=== PATIENT | female | born 1995 | race Caucasian/White ===

== ENCOUNTER 2017-04-28 19:54 | Outpatient (CLI) | payer MEDICAID, OTHER ==
[2017-04-28 21:57] VITALS: BP 129/60; PULSE 101; RESP 16; TEMP 97.8
--- NOTE | 2017-04-29 16:43 | P.MSEPDOC ---
Presenting Problems - Arrival Data Date of Arrival on Unit: 04/28/17 Time of Arrival on Unit: 19:50 Mode of Transport: Wheelchair - Complaint OB-Reason for Admission/Chief Complaint: Possible Onset of Labor, Decreased Movement, Other Comment: general feeling of "not feeling well," occasional cramps Medical History - Information : 1 Para: 0 Term: 0 : 0 Abortions: Spontaneous or Elective: 0 Number of Living Children: 0 - Gestational Age Gestational Age by RUBA (wks/days): 37 Weeks and 4 Days Review of Systems - Review of Systems Constitutional: No problems Breast: No problems ENT: No problems Cardiovascular: No problems Respiratory: No problems Gastrointestinal: No problems Genitourinary: No problems Musculoskeletal: No problems Neurological: No problems Skin: No problems Vital Signs - Temperature Temperature: 97.8 F Temperature Source: Temporal Artery Scan - Pulse Right Pulse Rate: 101 Pulse Assessment Method: Pulse Oximetry - Respirations Respiratory Rate: 16 O2 Sat by Pulse Oximetry: 98 - Blood Pressure Right Arm Blood Pressure: 129/60 Blood Pressure Mean: 83 Blood Pressure Source: Automatic Cuff Medical Screen Scoring (Pre) - Cervical Exam Dilation: 1-3 cm = 1 Membranes: Intact - Uterine Contractions Frequency: > 5 minutes apart = 1 Duration: > 40 seconds = 2 Intensity: N/A - Maternal Vital Signs Maternal Temperature: N/A Maternal Blood Pressure: N/A Signs of Preeclampsia: N/A Maternal Respirations: N/A - Maternal Trauma Maternal Trauma: N/A - Assessment Baseline FHR: 150 Heart Rate - NICHD Category: Category I (Normal) = 0 NST: Reactive - Total Score Total Score (Pre): 4 - Level of Risk Level of Risk: Low (0-5) Physician Notification (Pre) - Physician Notified Physician Notified Date: 04/28/17 Physician Notified Time: 21:21 Physician/Practitioner Notifed:: Dr Gates - Notification Comment Comment: reported on pts c/o not feeling well, occasional cramping. reported on fhts, cntrx pattern irreg, no change in vag exam. orders to d/c home with increase in oral fluids, position changes at home, keep scheduled appt in office on . 2122- Dr Heaton at desk, orders for pt to be seen in office tomorrow for NST and appt, may be d/c'd home. Disposition - Disposition OB Disposition: Discharge to home Discharge Date: 04/28/17 Discharge Time: 21:40 I agree with the RN Medical Screening Exam: Yes Risk & Benefit of care provided described in d/c instruction: Yes Diagnosis: 37 WEEKS GESTATION OF
== END 2017-04-28 21:40 | disposition home or self-care (01) ==
LOC: FBPOP 19:54
PROVIDERS: ATTEND Obstetrics & Gynecology
DX: O36.8130 Decreased fetal movements, third trimester, not applicable or unspecified (principal); Z3A.37 37 weeks gestation of pregnancy
CPT/HCPCS: 59025; 99213

== ENCOUNTER 2017-05-04 09:41 | Outpatient (CLI) | payer MEDICAID, OTHER ==
[2017-05-04 10:15] VITALS: BP 124/72; PULSE 87; RESP 18; TEMP 97.2
--- NOTE | 2017-05-05 16:06 | P.MSEPDOC ---
Presenting Problems - Arrival Data Date of Arrival on Unit: 05/04/17 Time of Arrival on Unit: 09:41 Mode of Transport: Ambulatory - Complaint OB-Reason for Admission/Chief Complaint: Possible Onset of Labor Medical History - Information : 1 Para: 0 Term: 0 : 0 Abortions: Spontaneous or Elective: 0 Number of Living Children: 0 - Gestational Age Gestational Age by RUBA (wks/days): 38 Weeks and 3 Days Review of Systems - Review of Systems Constitutional: No problems Breast: No problems ENT: No problems Cardiovascular: No problems Respiratory: No problems Gastrointestinal: No problems Genitourinary: No problems Musculoskeletal: No problems Neurological: No problems Skin: No problems Comment: Thyroid cyst removed , Activity induced asthma Vital Signs - Temperature Temperature: 97.2 F Temperature Source: Temporal Artery Scan - Pulse Brachial Pulse Rate: 87 Pulse Assessment Method: Automatic Cuff - Respirations Respiratory Rate: 18 Oxygen Delivery Method: Room Air O2 Sat by Pulse Oximetry: 97 - Blood Pressure Right Arm Blood Pressure: 124/72 Blood Pressure Mean: 89 Blood Pressure Source: Automatic Cuff Medical Screen Scoring (Pre) - Cervical Exam Dilation: 1-3 cm = 1 Membranes: Intact - Uterine Contractions Frequency: N/A Duration: N/A Intensity: N/A - Maternal Vital Signs Maternal Temperature: N/A Maternal Blood Pressure: N/A Signs of Preeclampsia: N/A Maternal Respirations: N/A - Pain Assessment Pain Location and Character: Back, Abdomen Pain Scale Used: Numeric (1 - 10) Pain Intensity: 5 Pain Management Goal: 2 Pain Description: *Acute, Cramping Pain Frequency: Intermittent Pain Behavior: Vocalization Non-Pharmacological Interventions: Darkened Room, Distraction, Reduce Environmental Stimuli, Relaxation Technique - Maternal Trauma Maternal Trauma: N/A - Assessment Baseline FHR: 148 Heart Rate - NICHD Category: Category I (Normal) = 0 NST: Reactive Position: N/A Station: N/A - Total Score Total Score (Pre): 1 - Level of Risk Level of Risk: N/A Physician Notification (Pre) - Physician Notified Physician Notified Date: 05/04/17 Physician Notified Time: 10:25 Physician/Practitioner Notifed:: Dr allen Spoke With: dr allen - Notification Comment Comment: discharge home and follow up on thu in office Disposition - Disposition OB Disposition: Triage, Discharge to home, Written follow up instructions reviewed Discharge Date: 05/04/17 Discharge Time: 10:35 I agree with the RN Medical Screening Exam: Yes Risk & Benefit of care provided described in d/c instruction: Yes Diagnosis: FALSE LABOR AT OR AFTER 37 COMPLETED WEEKS OF GESTATION
== END 2017-05-04 10:35 | disposition home or self-care (01) ==
LOC: FBPOP 09:41
PROVIDERS: ATTEND Obstetrics & Gynecology Obstetrics
DX: O47.1 False labor at or after 37 completed weeks of gestation (principal); Z3A.38 38 weeks gestation of pregnancy
CPT/HCPCS: 59025; 99213

== ENCOUNTER 2017-05-11 00:35 | Inpatient (IN) | payer MEDICAID, OTHER ==
[2017-05-11] MEDS ORDERED: OXYTOCIN 10 UNIT/ML 1 ML VIAL IM PRN (01:46)
[2017-05-11] MEDS ORDERED: CARBOPROST TROMETHAMINE 250 MCG/ML 1 ML AMP IM PRN (01:46)
[2017-05-11] MEDS ORDERED: TERBUTALINE 1 MG/ML VIAL SQ PRN (01:46)
[2017-05-11] MEDS ORDERED: LIDOCAINE 1% (PF) 10 MG/ML (30 ML SDV) SQ PRN (01:46)
[2017-05-11] MEDS ORDERED: METHYLERGONOVINE 0.2 MG/ML 1 ML AMP IM PRN (01:46)
[2017-05-11 02:00] VITALS: BMI 36.6
[2017-05-11] MEDS: LACTATED RINGERS 1,000 ML IV SCH ×3 (02:25→20:09)
[2017-05-11 02:32] LABS: Basophils # (A) 0.1 k/uL (0-0.2); Basophils % (A) 0 %; Eosinophils # (A) 0.2 k/uL (0-0.7); Eosinophils % (A) 1 %; HCT 38.6 % (34.0-46.0); Lymphocytes # (A) 2.3 k/uL (1.0-4.8); Lymphocytes % (A) 14 %; MCH 29.9 pg (25.0-35.0); MCHC 33.6 g/dL (31.0-37.0); MCV 89.2 fL (80.0-100.0); Mean Platelet Volume 7.9; Monocytes # (A) 0.8 k/uL (0-1.0); Monocytes % (A) 5 %; Neutrophils # (A) 13.1 k/uL (1.3-7.7); Neutrophils % (A) 79 %; Platelet Count 243 k/uL (150-450); RBC 4.33 m/uL (3.80-5.40); RDW 12.5 % (11.5-15.5); WBC 16.6 k/uL (3.8-10.6)
[2017-05-11] MEDS ORDERED: OXYTOCIN 20 UNITS/1000 ML NS 1,000 ML IV SCH ×2 (05:30→14:15)
[2017-05-11] MEDS ORDERED: SODIUM CHLORIDE 0.9% 100 ML BAG ONE (07:49)
[2017-05-11] MEDS ORDERED: fentaNYL (PF) 50 MCG/ML 5 ML AMP ONE (07:49)
[2017-05-11] MEDS ORDERED: BUPIVACAINE (PF) 0.25% 30 ML VIAL ONE (07:49)
--- NOTE | 2017-05-11 10:46 | P.HPOB ---
History of Present Illness H&P Date: 05/11/17 Chief Complaint: IUP @ 39 3/7 weeks, ctx This is a 22yo at 39 3/7 weeks EDC 05/15. Patient presents with c/o ctx that started about 930 last pm. she denies LOF, VB, and notes good FM. on blood work blood type of O pos, rubella immune, RPR NR, HBSaG neg, GBS neg. she does have a PMH of exercise induced asthma Review of Systems Constitutional: Denies chills, Denies fever Cardiovascular: Reports edema Respiratory: Denies cough, Denies dyspnea Gastrointestinal: Denies constipation, Denies diarrhea, Denies nausea, Denies vomiting Genitourinary: Reports Past Medical History Past Medical History: Asthma Additional Past Medical History / Comment(s): exercise induced asthma History of Any Multi-Drug Resistant Organisms: None Reported Additional Past Surgical History / Comment(s): Removal of Throat Cyst Past Anesthesia/Blood Transfusion Reactions: No Reported Reaction Past Psychological History: No Psychological Hx Reported Smoking Status: Never smoker Past Alcohol Use History: None Reported Past Drug Use History: None Reported - Past Family History Father Family Medical History: Asthma Medications and Allergies Home Medications Medication Instructions Recorded Confirmed Type Albuterol Inhaler [Ventolin Hfa 1 puff PO DIRECTED 04/28/17 05/04/17 History Inhaler] Pnv No.95/Ferrous Fum/Folic AC 05/11/17 History [ Multivitamin Tablet] Allergies Allergy/AdvReac Type Severity Reaction Status Date / Time No Known Allergies Allergy Verified 05/11/17 00:36 Exam Osteopathic Statement: *. No significant issues noted on an osteopathic structural exam other than those noted in the History and Physical/Consult. - Vital Signs Vital signs: Vital Signs Temp Pulse Pulse Resp BP BP Pulse Ox 05/11/17 01:54 97.1 F L 96 18 128/81 05/11/17 01:41 97.1 F L 96 18 128/81 99 05/11/17 00:35 87 18 Intake and Output 05/10/17 05/11/17 05/11/17 22:59 06:59 14:59 Intake Total 500 Balance 500 Intake: IV 500 Lactated Ringers 1,000 ml 500 @ 125 mls/hr IV .Q8H KING Rx#:[id number] Other: Voiding Method Toilet # Voids 2 Weight 90.718 kg - OBG Physical Exam Abdomen: gravid Cervix: 4/100/-2 BBOW, amniotomy preformed with clear fluid noted Results Result Diagrams: 05/11/17 02:25 Abnormal Lab Results - Last 24 Hours (Table) 05/11/17 Range/Units 02:25 WBC 16.6 H (3.8-10.6) k/uL Neutrophils # 13.1 H (1.3-7.7) k/uL Assessment and Plan (1) Term Current Visit: Yes Status: Acute Code(s): Z34.80 - ENCOUNTER FOR SUPRVSN OF NORMAL , UNSP TRIMESTER SNOMED Code(s): 62182468 Plan: admit to labor and delviery for anticipated later today
[2017-05-11] MEDS ORDERED: WITCH HAZEL 1 EACH MED..PAD TOPICAL PRN (14:11)
[2017-05-11] MEDS ORDERED: diphenhydrAMINE 25 MG CAP PO PRN (14:11)
[2017-05-11] MEDS ORDERED: diphenhydrAMINE 50 MG CAP PO PRN (14:11)
[2017-05-11] MEDS ORDERED: ZOLPIDEM 5 MG TAB PO PRN (14:11)
[2017-05-11] MEDS ORDERED: SIMETHICONE 80 MG CHEWABLE PO PRN (14:11)
[2017-05-11] MEDS ORDERED: LANOLIN CREAM 5 GM TUBE TOPICAL PRN (14:11)
[2017-05-11] MEDS ORDERED: HYDROCORTISONE 2.5% RECTAL CREAM 30 GM TUBE RECTAL PRN (14:11)
[2017-05-11] MEDS ORDERED: BENZOCAINE/MENTHOL SPRAY 1 GM/SPRAY AEROSOL TOPICAL PRN (14:11)
[2017-05-11] MEDS ORDERED: diphenhydrAMINE 50 MG/ML 1 ML VIAL IVP PRN ×2 (14:11)
--- NOTE | 2017-05-11 14:14 | P.PROBDLV ---
Vaginal Delivery Note - . Vaginal Delivery Note: This is a very pleasant 22-year-old 1 para 0 that presented with complaints of contractions. Patient was initially 3 cm dilated was admitted for expectant management and she was adrian every 5 minutes. Patient progressed to 4-5 cm amniotomy was performed with clear fluid. Patient noted contractions to be spacing out therefore Pitocin augmentation of labor was begun. Patient eventually got an epidural for analgesia became complete and began pushing. Patient was noted to be complete and began pushing. Patient had a normal spontaneous vaginal delivery of an occiput posterior male infant at 1349 weight of 7 lbs. 4 oz. Apgars of 9 and 9. A second-degree vaginal laceration was noted. The head was delivered in the occiput posterior presentation slight downward traction delivered the anterior shoulder slight upward traction delivered the posterior shoulder, the infant's body was then delivered without difficulty and placed on the maternal abdomen. After Dorton delayed cord clamp was completed the cord was doubly clamped and cut. The placenta was then removed spontaneously intact with a three-vessel cord. Afterwards inspection of the patient's vaginal vault a second-degree midline laceration was noted with labial lacerations bilaterally. These were repaired in the usual fashion with 3 -0 Rapide. Afterwards the vaginal vault was inspected everything was intact and no further lacerations were noted a rectal exam was completed in normal in nature. X Estimated blood loss approximately 300 mL. Patient and are doing well and resting comfortably after delivery.
[2017-05-11] MEDS: IBUPROFEN 600 MG TAB PO PRN ×2 (14:57→22:58)
[2017-05-11] MEDS: SENNOSIDES-DOCUSATE SODIUM 1 EACH TAB PO SCH (19:34)
[2017-05-11] MEDS: ACETAMINOPHEN TAB 325 MG TAB PO PRN (19:34)
[2017-05-12 00:30] VITALS: RESP 16
[2017-05-12] MEDS: ACETAMINOPHEN TAB 325 MG TAB PO PRN (02:12)
[2017-05-12] MEDS: IBUPROFEN 600 MG TAB PO PRN ×2 (08:23→14:53)
[2017-05-12] MEDS: SENNOSIDES-DOCUSATE SODIUM 1 EACH TAB PO SCH (08:24)
--- NOTE | 2017-05-12 08:39 | P.DS ---
Providers Date of admission: 05/11/17 01:48 Expected date of discharge: 05/12/17 Attending physician: Gabrielle Heaton Primary care physician: Stated None - Discharge Diagnosis(es) (1) Term Current Visit: Yes Status: Acute (2) Status post vaginal delivery Current Visit: Yes Status: Acute Hospital Course: This is a 22-year-old 1 para 0 that presented yesterday in active labor. Patient progressed slowly through labor amniotomy was performed clear fluid was obtained, she eventually needed Pitocin augmentation to become complete. She began pushing and had a normal spontaneous vaginal delivery of a viable male in an occiput posterior presentation. Delivery time of 1349 , weight of 7 lbs. 4 oz. with Apgars of 9 and 9 at one and 5 minutes respectively Patient's course is been uneventful. She is breast-feeding with some difficulty but states she is doing well. She is ambulating and voiding without difficulty, lochia is moderate, she states her pain is controlled. She wishes to be discharged home Patient Condition at Discharge: Good Plan - Discharge Summary New Discharge Prescriptions: No Action Albuterol Inhaler [Ventolin Hfa Inhaler] 1 puff PO DIRECTED Pnv No.95/Ferrous Fum/Folic AC [ Multivitamin Tablet] Discharge Medication List Albuterol Inhaler [Ventolin Hfa Inhaler] 1 puff PO DIRECTED 04/28/17 [History ] Pnv No.95/Ferrous Fum/Folic AC [ Multivitamin Tablet] 05/11/17 [History ] Follow up Appointment(s)/Referral(s): Gabrielle Heaton DO [Doctor of Osteopathic Medicine] - 1 Week Patient Instructions/Handouts: Vaginal Delivery (DC)
[2017-05-12 08:40] VITALS: BP 122/69; PULSE 97; TEMP 97.6
--- NOTE | 2017-05-12 18:47 | P.MSEPDOC ---
Presenting Problems - Arrival Data Date of Arrival on Unit: 05/11/17 Time of Arrival on Unit: 01:49 Mode of Transport: Wheelchair - Complaint OB-Reason for Admission/Chief Complaint: Possible Onset of Labor Comment: C/O contrations starting at 2130. Medical History - Information : 1 Para: 0 Term: 0 : 0 Abortions: Spontaneous or Elective: 0 Number of Living Children: 0 - Gestational Age Gestational Age by RUBA (wks/days): 39 Weeks and 4 Days Review of Systems - Review of Systems Constitutional: No problems Breast: No problems ENT: No problems Cardiovascular: No problems Respiratory: No problems Gastrointestinal: No problems Genitourinary: No problems Musculoskeletal: No problems Neurological: No problems Skin: No problems Vital Signs - Temperature Temperature: 97.6 F Temperature Source: Oral - Pulse Pulse Oximetery Pulse Rate: 97 Pulse Assessment Method: Pulse Oximetry Right Pulse Rate: 101 Pulse Assessment Method: Pulse Oximetry - Respirations Respiratory Rate: 16 Oxygen Delivery Method: Room Air - Blood Pressure Sitting Blood Pressure: 122/69 Blood Pressure Mean: 86 Blood Pressure Source: Automatic Cuff Right Arm Blood Pressure: 116/60 Blood Pressure Mean: 78 Blood Pressure Source: Automatic Cuff Medical Screen Scoring (Pre) - Cervical Exam Dilation: 1-3 cm = 1 Effacement: Exam Deferred Membranes: Intact - Uterine Contractions Frequency: > 5 minutes apart = 1 Duration: N/A Intensity: N/A - Maternal Vital Signs Maternal Temperature: N/A Maternal Blood Pressure: N/A Signs of Preeclampsia: N/A Maternal Respirations: N/A - Pain Assessment Pain Location and Character: Abdomen Pain Scale Used: Numeric (1 - 10) Pain Intensity: 6 Pain Management Goal: 0 Pain Description: *Acute, Cramping, Squeezing Pain Frequency: Intermittent Pain Duration Units: Minutes Pain Behavior: Vocalization Pain Aggravating Factors: Contractions Non-Pharmacological Interventions: Darkened Room, Distraction, Environmental Control, Position/Reposition, Relaxation Technique - Maternal Trauma Maternal Trauma: N/A - Assessment Baseline FHR: 135 Heart Rate - NICHD Category: Category I (Normal) = 0 NST: Reactive Position: N/A Station: N/A - Total Score Total Score (Pre): 2 - Level of Risk Level of Risk: Low (0-5) Physician Notification (Pre) - Physician Notified Physician Notified Date: 05/11/17 Physician Notified Time: 01:41 Physician/Practitioner Notifed:: Dr. Heaton Spoke With: Dr. Heaton New Order Received: Yes (Admit) - Notification Comment Comment: Orders to admit pt at this time. If not making change/not in consistant contraction pattern by [phone] start pitoicin at that time. Medical Screen Scoring (Post) - Cervical Exam Dilation: 1-3 cm = 1 Effacement: Exam Deferred Membranes: Intact - Uterine Contractions Frequency: > 5 minutes apart = 1 Duration: N/A Intensity: N/A - Maternal Vital Signs Maternal Temperature: N/A Maternal Blood Pressure: N/A Signs of Preeclampsia: N/A Maternal Respirations: N/A - Pain Assessment Pain Location and Character: Abdomen Pain Scale Used: Numeric (1 - 10) Pain Intensity: 6 Pain Management Goal: 0 Pain Description: *Acute, Cramping, Squeezing Pain Frequency: Intermittent Pain Duration Units: Minutes Pain Behavior: Vocalization Pain Aggravating Factors: Contractions Non-Pharmacological Interventions: Darkened Room, Distraction, Environmental Control, Position/Reposition, Relaxation Technique - Maternal Trauma Maternal Trauma: N/A - Assessment Heart Rate: 140 Heart Rate - NICHD Category: Category I (Normal) = 0 NST: Reactive Position: N/A Station: N/A - Total Score Total Score (Post): 2 - Post Treatment Level of Risk Post Treatment Level of Risk: Low (0-5) Physician Notification (Post) - Physician Notified Physician Notified Date: 05/11/17 Physician Notified Time: 01:40 Physician/Practitioner Notified:: Dr. Heaton Spoke With: Dr. Heaton New Order Received: Yes (Admit) Disposition - Disposition OB Disposition: Admit Transferred to:: [address] Discharge Date: 05/12/17 Discharge Time: 14:57 I agree with the RN Medical Screening Exam: Yes Risk & Benefit of care provided described in d/c instruction: Yes Diagnosis: FULL-TERM BBEE ROM, ONSET LABOR WITHIN 24 HOURS OF RUPTURE
== END 2017-05-12 14:58 | disposition home or self-care (01) | DRG 775 ==
LOC: FBPOP 00:35 → 4FBP 01:48
PROVIDERS: ADMIT Obstetrics & Gynecology Obstetrics; ATTEND Obstetrics & Gynecology Obstetrics
PROC: 10E0XZZ Delivery of Products of Conception, External Approach (ICD-10-PCS; principal; 2017-05-11)
PROC: 0KQM0ZZ Repair Perineum Muscle, Open Approach (ICD-10-PCS; 2017-05-11)
PROC: 00HU33Z Insertion of Infusion Device into Spinal Canal, Percutaneous Approach (ICD-10-PCS; 2017-05-11)
PROC: 3E0R3NZ Introduction of Analgesics, Hypnotics, Sedatives into Spinal Canal, Percutaneous Approach (ICD-10-PCS; 2017-05-11)
PROC: 10907ZC Drainage of Amniotic Fluid, Therapeutic from Products of Conception, Via Natural or Artificial Opening (ICD-10-PCS; 2017-05-11)
DX: O99.52 Diseases of the respiratory system complicating childbirth (principal); J45.990 Exercise induced bronchospasm; O70.1 Second degree perineal laceration during delivery; Z37.0 Single live birth; Z82.5 Family history of asthma and other chronic lower respiratory diseases; Z3A.39 39 weeks gestation of pregnancy; Z79.899 Other long term (current) drug therapy
CPT/HCPCS: 59025; 85025; 88307; 99213

== ENCOUNTER 2018-09-29 05:55 | Inpatient (IN) | payer MEDICAID ==
[2018-09-29] MEDS ORDERED: METHYLERGONOVINE 0.2 MG/ML 1 ML AMP IM PRN (06:06)
[2018-09-29] MEDS ORDERED: OXYTOCIN 10 UNIT/ML 1 ML VIAL IM PRN (06:06)
[2018-09-29] MEDS ORDERED: LIDOCAINE 0.5% (PF) 5 MG/ML (50 ML SDV) SQ PRN (06:06)
[2018-09-29] MEDS ORDERED: TERBUTALINE 1 MG/ML VIAL SQ PRN (06:06)
[2018-09-29] MEDS ORDERED: CARBOPROST TROMETHAMINE 250 MCG/ML 1 ML AMP IM PRN (06:06)
[2018-09-29] MEDS ORDERED: OXYTOCIN 30 UNITS/500 ML NS 30 UNIT in SALINE 1 500ML.BAG IV SCH (06:15)
[2018-09-29 06:27] VITALS: BMI 34.0
[2018-09-29] MEDS: LACTATED RINGERS 1,000 ML IV SCH ×3 (06:28→13:34)
[2018-09-29 06:34] LABS: Basophils % (A) 0 %; Eosinophils # (A) 0.1 k/uL (0-0.7); Eosinophils % (A) 1 %; HCT 35.1 % (34.0-46.0); Lymphocytes # (A) 1.7 k/uL (1.0-4.8); Lymphocytes % (A) 15 %; MCH 31.3 pg (25.0-35.0); MCHC 34.1 g/dL (31.0-37.0); MCV 91.7 fL (80.0-100.0); Mean Platelet Volume 7.6; Monocytes # (A) 0.6 k/uL (0-1.0); Monocytes % (A) 5 %; Neutrophils # (A) 8.7 k/uL (1.3-7.7); Neutrophils % (A) 77 %; Platelet Count 241 k/uL (150-450); RBC 3.83 m/uL (3.80-5.40); RDW 12.6 % (11.5-15.5); WBC 11.3 k/uL (3.8-10.6)
[2018-09-29] MEDS ORDERED: ROPIVACAINE 100 MG, fentaNYL (PF) 200 MCG in SODIUM CHLORIDE 0.9% 76 ML EPIDURAL ONE (12:59)
--- NOTE | 2018-09-29 15:07 | P.HPOB ---
History of Present Illness H&P Date: 09/29/18 Chief Complaint: IUP at 39-0/7 weeks, elective induction of labor This is a pleasant 23-year-old 2 para 1001 at 39-0/7 weeks that presented to labor and delivery for elective induction of labor. Patient has been receiving routine uncomplicated care with myself, patient notes good movement denies vaginal bleeding or loss of fluid. On bloodwork should a blood type of O+, rubella immune, B surface antigen negative, HIV negative, RPR nonreactive, GBS negative. Patient is a have a history of asthma but been well controlled. Review of Systems Constitutional: Denies chills, Denies fatigue, Denies fever Ears, nose, mouth and throat: Denies headache Cardiovascular: Reports edema Respiratory: Denies cough, Denies dyspnea Gastrointestinal: Denies nausea, Denies vomiting Genitourinary: Reports Past Medical History Past Medical History: Asthma Additional Past Medical History / Comment(s): exercise induced asthma History of Any Multi-Drug Resistant Organisms: None Reported Additional Past Surgical History / Comment(s): Removal of Throat Cyst, Sawyer tooth extraction Past Anesthesia/Blood Transfusion Reactions: Postoperative Nausea & Vomiting (PONV) Past Psychological History: No Psychological Hx Reported Smoking Status: Never smoker Past Alcohol Use History: None Reported Past Drug Use History: None Reported - Past Family History Father Family Medical History: Asthma Mother Family Medical History: Diabetes Mellitus, Hypertension Additional Family Medical History / Comment(s): Type 2 DM, Stent placed July 2017 Medications and Allergies Home Medications Medication Instructions Recorded Confirmed Type Albuterol Inhaler [Ventolin Hfa 1 puff PO DIRECTED 04/28/17 09/29/18 History Inhaler] Pnv No.95/Ferrous Fum/Folic AC 1 tab PO DAILY 05/11/17 09/29/18 History [ Multivitamin Tablet] Allergies Allergy/AdvReac Type Severity Reaction Status Date / Time No Known Allergies Allergy Verified 09/29/18 06:04 Exam Osteopathic Statement: *. No significant issues noted on an osteopathic structural exam other than those noted in the History and Physical/Consult. Vital Signs Temp Pulse Resp BP 09/29/18 06:21 97.2 F L 101 H 16 117/74 Intake and Output 09/29/18 09/29/18 09/29/18 06:59 14:59 22:59 Other: Weight 84.368 kg Targeted physical exam is performed on this date in general this a well- nourished well-developed female in no acute distress, patient notes no nlabored breathing heart has regular rate and rhythm her abdomen is gravid and appropriate for gestational age on cervical exam she is 2/50/-3 amniotomy is performed and clear fluid was obtained heart tones are every 1. Results Result Diagrams: 09/29/18 06:25 Abnormal Lab Results - Last 24 Hours (Table) 09/29/18 Range/Units 06:25 WBC 11.3 H (3.8-10.6) k/uL Neutrophils # 8.7 H (1.3-7.7) k/uL Assessment and Plan (1) Term Current Visit: No Status: Acute Code(s): Z34.80 - ENCOUNTER FOR SUPRVSN OF NORMAL , UNSP TRIMESTER SNOMED Code(s): 22375601 Plan: Patient is admitted to labor and delivery for Pitocin induction of labor, patient is offered Stadol/epidural as needed for pain relief anticipate spontaneous vaginal delivery later today.
[2018-09-29] MEDS ORDERED: LANOLIN CREAM 5 GM TUBE TOPICAL PRN (15:08)
[2018-09-29] MEDS ORDERED: diphenhydrAMINE 50 MG CAP PO PRN (15:08)
[2018-09-29] MEDS ORDERED: diphenhydrAMINE 25 MG CAP PO PRN (15:08)
[2018-09-29] MEDS ORDERED: ACETAMINOPHEN TAB 325 MG TAB PO PRN (15:08)
[2018-09-29] MEDS ORDERED: diphenhydrAMINE 50 MG/ML 1 ML VIAL IVP PRN ×2 (15:08)
[2018-09-29] MEDS ORDERED: BENZOCAINE/MENTHOL SPRAY 1 GM/SPRAY AEROSOL TOPICAL PRN (15:08)
[2018-09-29] MEDS ORDERED: WITCH HAZEL 1 EACH MED..PAD TOPICAL PRN (15:08)
[2018-09-29] MEDS ORDERED: SIMETHICONE 80 MG CHEWABLE PO PRN (15:08)
[2018-09-29] MEDS ORDERED: HYDROCORTISONE 2.5% RECTAL CREAM 30 GM TUBE RECTAL PRN (15:08)
[2018-09-29] MEDS ORDERED: HYDROcodone/APAP 5-325MG 1 EACH TAB PO PRN (15:08)
[2018-09-29] MEDS ORDERED: ZOLPIDEM 5 MG TAB PO PRN (15:08)
--- NOTE | 2018-09-29 15:08 | P.PROBDLV ---
Vaginal Delivery Note - . Vaginal Delivery Note: This is a 23-year-old 2 para 1001 at 39-0/7 weeks that presents to labor and delivery for elective induction of labor. Patient was admitted Pitocin induction was begun. Amniotomy was performed and clear fluid was obtained. Patient progressed through labor becoming uncomfortable and requesting epidural placement. Patient progressed to complete began pushing and had a normal spontaneous vaginal delivery of a viable female infant at 1452, a loose body cord was delivered through, weight of 5 lbs. 13 oz., Apgars of 9 and 9 at one and 5 minutes respectively. After a two-minute delayed the umbilical cord was then doubly clamped and cut and the placenta was delivered spontaneously intact with a three-vessel cord being noted. On inspection the patient's vaginal vault a second-degree midline laceration was noted this was repaired in the usual fashion with 3-0 Rapide. Hemostasis was appreciated afterwards. Uterus is firm and below the umbilicus at this time. S May blood loss 300 mL. A rectal exam was performed and normal in nature. All counts are correct 2 patient and infant tolerated delivery well and are resting comfortably.
[2018-09-29] MEDS ORDERED: ALBUTEROL NEBULIZED 2.5 MG/3 ML INHALATION PRN (15:15)
[2018-09-29] MEDS ORDERED: OXYTOCIN 20 UNITS/1000 ML NS 1,000 ML IV SCH (15:15)
[2018-09-29] MEDS: SENNOSIDES-DOCUSATE SODIUM 1 EACH TAB PO SCH (23:18)
[2018-09-30] MEDS: IBUPROFEN 600 MG TAB PO PRN ×3 (01:04→14:16)
[2018-09-30 07:19] LABS: Basophils % (A) 0 %; Eosinophils # (A) 0.1 k/uL (0-0.7); Eosinophils % (A) 1 %; HCT 37.3 % (34.0-46.0); HGB 12.4 gm/dL (11.4-16.0); Lymphocytes # (A) 1.9 k/uL (1.0-4.8); Lymphocytes % (A) 12 %; MCH 31.2 pg (25.0-35.0); MCHC 33.3 g/dL (31.0-37.0); MCV 93.7 fL (80.0-100.0); Mean Platelet Volume 7.2; Monocytes # (A) 0.8 k/uL (0-1.0); Monocytes % (A) 5 %; Neutrophils # (A) 12.2 k/uL (1.3-7.7); Neutrophils % (A) 81 %; Platelet Count 210 k/uL (150-450); RBC 3.98 m/uL (3.80-5.40); RDW 12.5 % (11.5-15.5); WBC 15.1 k/uL (3.8-10.6)
--- NOTE | 2018-09-30 08:11 | P.DS ---
Providers Date of admission: 09/29/18 05:55 Expected date of discharge: 09/30/18 Attending physician: Gabrielle Heaton Primary care physician: Stated None - Discharge Diagnosis(es) (1) Status post vaginal delivery Current Visit: No Status: Acute (2) Term Current Visit: No Status: Acute (3) Perineal laceration with delivery, second degree Current Visit: Yes Status: Acute Hospital Course: This is a 23-year-old 2 now para 2 woman who is admitted at 39 weeks gestation for elective induction of labor. She was admitted and underwent a Pitocin induction of labor with artificial rupture of membranes. She received an epidural anesthetic. She went on to deliver a liveborn female infant weighing 5 lbs. 13 oz. with Apgars of 9 at 1 minute and 9 at 5 minutes. She had a second-degree perineal laceration. Please see the delivery summary for details. The patient's course was entirely unremarkable. By day #1 she was tolerating a general diet, ambulating and voiding without difficulty, she had moderate lochia, and she was breast feeding successfully. She was therefore discharged home with routine instructions for care and follow-up. Procedures: Normal spontaneous vaginal delivery Repair of second-degree perineal laceration Patient Condition at Discharge: Good Plan - Discharge Summary New Discharge Prescriptions: No Action Albuterol Inhaler [Ventolin Hfa Inhaler] 1 puff PO DIRECTED Pnv No.95/Ferrous Fum/Folic AC [ Multivitamin Tablet] 1 tab PO DAILY Discharge Medication List Albuterol Inhaler [Ventolin Hfa Inhaler] 1 puff PO DIRECTED 04/28/17 [History] Pnv No.95/Ferrous Fum/Folic AC [ Multivitamin Tablet] 1 tab PO DAILY 05/11/17 [History] Follow up Appointment(s)/Referral(s): Gabrielle Heaton DO [Doctor of Osteopathic Medicine] - 6 Weeks Activity/Diet/Wound Care/Special Instructions: Follow-up in the office in 6 weeks . Call with any concerning signs or symptoms including heavy vaginal bleeding, severe abdominal pain, fever greater than 101, swelling or redness of the lower extremities, foul vaginal discharge, or signs of depression. Nothing in the vagina for 6 weeks after delivery, specifically no intercourse. May use [id number] ibuprofen and/or Tylenol as needed for pain. May use [id number] stool softener such as Senokot or Colace as needed. Discharge Disposition: HOME SELF-CARE
[2018-09-30] MEDS: SENNOSIDES-DOCUSATE SODIUM 1 EACH TAB PO SCH (08:38)
[2018-09-30] MEDS ORDERED: PRENATAL VIT-IRON-FOLIC ACID 1 EACH CAP PO SCH (09:00)
[2018-09-30 10:44] VITALS: BP 120/74; PULSE 86; RESP 16; TEMP 98.2
== END 2018-09-30 16:20 | disposition home or self-care (01) | DRG 807 ==
LOC: 4FBP 05:55
PROVIDERS: ADMIT Obstetrics & Gynecology Obstetrics; ATTEND Obstetrics & Gynecology Obstetrics
PROC: 10907ZC Drainage of Amniotic Fluid, Therapeutic from Products of Conception, Via Natural or Artificial Opening (ICD-10-PCS; principal; 2018-09-29)
PROC: 00HU33Z Insertion of Infusion Device into Spinal Canal, Percutaneous Approach (ICD-10-PCS; principal; 2018-09-29)
PROC: 3E0R3BZ Introduction of Anesthetic Agent into Spinal Canal, Percutaneous Approach (ICD-10-PCS; principal; 2018-09-29)
PROC: 10E0XZZ Delivery of Products of Conception, External Approach (ICD-10-PCS; principal; 2018-09-29)
PROC: 0KQM0ZZ Repair Perineum Muscle, Open Approach (ICD-10-PCS; principal; 2018-09-29)
DX: O99.52 Diseases of the respiratory system complicating childbirth (principal); Z37.0 Single live birth; O70.1 Second degree perineal laceration during delivery; J45.909 Unspecified asthma, uncomplicated; Z3A.39 39 weeks gestation of pregnancy; Z82.49 Family history of ischemic heart disease and other diseases of the circulatory system; Z79.899 Other long term (current) drug therapy; Z82.5 Family history of asthma and other chronic lower respiratory diseases; Z83.3 Family history of diabetes mellitus; Z98.890 Other specified postprocedural states
CPT/HCPCS: 85025; 86850; 86900; 86901

== ENCOUNTER → 2019-12-05 | Outpatient (CLI) | payer MEDICAID, OTHER | END | disposition home or self-care (01) | LOC: LABWHC1 12:02 | PROVIDERS: ATTEND Pediatrics Pediatric Infectious Diseases | DX: Z03.818 Encounter for observation for suspected exposure to other biological agents ruled out (principal) | CPT/HCPCS: U0003; C9803 ==

== ENCOUNTER → 2019-12-07 | Outpatient (CLI) | payer MEDICAID | END | disposition home or self-care (01) | LOC: LABWHC1 16:57 | PROVIDERS: ATTEND Pediatrics Pediatric Infectious Diseases | DX: Z03.818 Encounter for observation for suspected exposure to other biological agents ruled out (principal) | CPT/HCPCS: U0003; C9803 ==

== ENCOUNTER → 2023-02-24 | Outpatient (CLI) | payer MEDICAID ==
--- NOTE | 2023-02-24 09:50 | MR ---
EXAMINATION TYPE: MR brain and iac wo/w con DATE OF EXAM: 02/24/2023 COMPARISON: None HISTORY: Dizziness, Left ear ringing, left side facial numbness TECHNIQUE: Multiplanar, multisequence images of the brain and brainstem is performed without and with IV contras t, utilizing 8.5 mL intravenous Gadavist . FINDINGS: Diffusion weighted images demonstrate no evidence of a recent infarct or other diffusion ab normality. There is no extra-axial fluid collection or significant white matter signal abnormality. The ventricular system and cisternal spaces are normal in size and appearance. The brain volume is age appropriate. There are couple scattered foci of abnormal signal in the white matter which are too small to characterize. Midline structures demonstrate normal morphology. The craniocervical junction appears within normal limits. Post contrast images demonstrate no abnormal enhancement. The dural venous sinuses appear pa tent. Minimal changes of chronic sinusitis. The globes are intact. Cerebellar tonsils are low-lying in position. IMPRESSION: 1. No evidence of cerebellopontine angle mass or acoustic schwannoma 2. Low lying cerebellar tonsils at or just below the level of foramen magnum.
== END | disposition home or self-care (01) ==
LOC: RADMRIMAIN 08:29
PROVIDERS: ATTEND Otolaryngology
DX: H93.12 Tinnitus, left ear (principal); R42 Dizziness and giddiness; R20.0 Anesthesia of skin
CPT/HCPCS: 70553; A9585